=== PATIENT | male | born 1975 | race Caucasian/White ===

== ENCOUNTER → 2018-12-10 16:48 | Outpatient (CLI) | payer OTHER, SELFPAY ==
[2018-12-10 17:23] LABS: Add Manual Diff / Slide Review NO; Basophils Absolute Auto 100 /uL (0-100); Basophils Percent Auto 0.9 % (0-2); Eosinophils Absolute Auto 100 /uL (0-450); Eosinophils Percent Auto 1.8 % (2-4); Hematocrit 45.1 % (41-53); Hemoglobin 15.4 g/dL (13.5-17.5); Lymphocytes Absolute Auto 2400 /uL (1100-4500); Lymphocytes Percent Auto 33.1 % (25-40); Mean Corpuscular HGB Conc 34.2 % (30-36); Mean Corpuscular Hemoglobin 31.8 PG (26-34); Monocytes Absolute Auto 700 /uL (0-900); Monocytes Percent Auto 9.6 % (3-14); Neutrophils Absolute Auto 3900 /uL (1500-7000); Neutrophils Percent Auto 54.6 % (50-75); Platelet Count 240 X10^3/uL (150-400); Red Blood Cell Count 4.85 X10^6/uL (4.5-5.9); White Blood Cell Count 7.2 X10^3/uL (4.5-11.0)
[2018-12-10 17:34] LABS: Hemoglobin A1C% w Est Avg Glu 5.2 % (4.0-6.0)
[2018-12-10 17:54] LABS: Alanine Aminotransferase 49 IU/L (21-72); Albumin 4.5 g/dL (3.5-5.0); Albumin Globulin Ratio 1.6 (1.0-2.8); Alkaline Phosphatase 72 U/L (38-126); Aspartate Aminotransferase 65 IU/L (17-59); Blood Urea Nitrogen 13 mg/dL (9-20); Calcium 9.5 mg/dL (8.4-10.2); Carbon Dioxide 28 mmol/L (22-32); Chloride 103 mmol/L (98-107); Estimated Glomerular Filt Rate > 60.0 mL/min (>60); Globulin 2.9 g/dL (1.7-4.1); Glucose 96 mg/dL (70-100); HEMOLYSIS < 15 (0-50); Potassium 4.2 mmol/L (3.4-5.1); Sodium 140 mmol/L (137-145); Total Protein 7.4 g/dL (6.3-8.2)
[2018-12-10 18:24] LABS: Thyroid Stimulating Hormone 1.67 uIU/mL (0.47-4.68)
== END ==
PROVIDERS: PCP Family Medicine; Visit Provider Family Medicine
DX: R35.0 Frequency of micturition (principal)
CPT/HCPCS: 36415; 80053; 83036; 84443; 85025; G0103

== ENCOUNTER 2021-08-02 17:09 | Emergency (ER) | payer OTHER, SELFPAY ==
--- NOTE | 2021-08-02 17:11 | DI.RAD.S_ITS ---
PROCEDURE: XR CHEST 1V INDICATIONS: chest pain TECHNIQUE: One view of the chest was acquired. COMPARISON: [facility], , CHEST 2 VIEW, 05/04/2016, 14:21. FINDINGS: Surgical changes and devices: None. Lungs and pleura: Lungs are clear. No pleural effusions or pneumothorax. Mediastinum: Mediastinal contours appear normal. Heart size is normal. Bones and chest wall: No suspicious bony lesions. Overlying soft tissues appear unremarkable. IMPRESSION: 1. No acute cardiopulmonary disease. Dictated by: Harman Pereyra M.D. on 08/02/2021 at 18:32 Approved by: Harman Pereyra M.D. on 08/02/2021 at 18:33
[2021-08-02 17:19] VITALS: BP 107/57; PULSE 76; RESP 18; TEMP 36.6; O2SAT 97; BMI 31.7
[2021-08-02 17:39] LABS: Add Manual Diff / Slide Review NO; Basophils Absolute Auto 100 /uL (0-100); Eosinophils Absolute Auto 100 /uL (0-450); Eosinophils Percent Auto 1.7 % (2-4); Hematocrit 44.8 % (41-53); Hemoglobin 15.3 g/dL (13.5-17.5); Lymphocytes Absolute Auto 2400 /uL (1100-4500); Mean Corpuscular HGB Conc 34.2 % (30-36); Mean Corpuscular Hemoglobin 31.5 PG (26-34); Mean Corpuscular Volume 92.3 fL (80-100); Monocytes Absolute Auto 1000 /uL (0-900); Monocytes Percent Auto 13.2 % (3-14); Neutrophils Absolute Auto 3700 /uL (1500-7000); Neutrophils Percent Auto 51.1 % (50-75); Platelet Count 228 X10^3/uL (150-400); Red Blood Cell Count 4.86 X10^6/uL (4.5-5.9); Red Cell Distribution Width 12.6 % (11.6-14.8); White Blood Cell Count 7.2 X10^3/uL (4.5-11.0)
[2021-08-02 17:54] LABS: Alanine Aminotransferase 32 IU/L (<50); Albumin 4.7 g/dL (3.5-5.0); Albumin Globulin Ratio 1.5 (1.0-2.8); Alkaline Phosphatase 73 U/L (38-126); Aspartate Aminotransferase 59 IU/L (17-59); BUN Creatinine Ratio 11.8 (6-22); Bilirubin Total 1.1 mg/dL (0.2-1.3); Blood Urea Nitrogen 11 mg/dL (9-20); Calcium 9.5 mg/dL (8.4-10.2); Carbon Dioxide 33 mmol/L (22-32); Chloride 103 mmol/L (98-107); Creatine Kinase 156 U/L (55-170); Estimated Glomerular Filt Rate > 60.0 mL/min (>60); Globulin 3.2 g/dL (1.7-4.1); Glucose 87 mg/dL (70-100); HEMOLYSIS < 15 (0-50); Lipase 269 U/L (23-300); Potassium 3.6 mmol/L (3.4-5.1); Sodium 143 mmol/L (137-145); Total Protein 7.9 g/dL (6.3-8.2)
[2021-08-02 17:58] VITALS: BP 107/52; PULSE 74; RESP 17; O2SAT 99
[2021-08-02 18:06] LABS: Troponin I < 0.012 ng/mL (0.01-0.034)
[2021-08-02 18:09] LABS: CKMB % Relative Index 0.5 % (1.5-5.0); Creatine Kinase MB 0.84 ng/mL (<2.37)
--- NOTE | 2021-08-02 18:36 | ED_ITS ---
HPI - Chest Pain <Jay Hewitt PA-C - Last Filed: 08/02/21 19:20> General Chief Complaint: Chest Pain Stated Complaint: CHEST PAIN SINCE MON Time Seen by Provider: 08/02/21 17:34 Source: patient Mode of arrival: Family Vehicle Limitations: no limitations History of Present Illness HPI narrative: Harman presents today with chief complaint of right-sided chest wall pain that started yesterday. He does not know of any injury that could have contributed to his symptoms. His pain is described as sharp and is reproduced with movement or direct palpation of his right lower ribs. His pain completely goes away if he lays still. He denies any significant difficulty breathing, nausea, diaphoresis, shortness of breath, fever, cough or any other acute concerns or complaints at this time. He is otherwise healthy and has no known significant past medical problems. He denies any history of DVT, recent surgeries, prolonged immobilization. Review of Systems <Jay Hewitt PA-C - Last Filed: 08/02/21 19:20> Review of Systems Narrative: As per HPI Patient History <Jay Hewitt PA-C - Last Filed: 08/02/21 19:20> Social History Smoking Status: Never smoker Smoking Status: Never smoker alcohol intake frequency: holidays/special occasions only Substance Use Type: does not use Exam <EUGENIO [employer] Last Filed: 08/02/21 19:20> Narrative Exam Narrative: Exam Narrative: Const General: cooperative, healthy appearing, comfortable, no acute distress, well developed and well groomed Nutritional Appearance: average body habitus Orientation: alert and oriented x3 HENMT Head: normal to inspection and atraumatic Ears: hearing grossly normal bilaterally Nose: external nose normal and nares normal Face and sinus: normal facial exam Neck Neck: normal visual inspection and supple Resp Effort & Inspection: normal respiratory effort, able to speak in complete sentences, no audible wheezes, not labored, no nasal flaring and no respiratory distress, clear to auscultation bilaterally Cardiac Regular rate and rhythm, no discernible murmurs, rubs or gallops Chest Right-sided lower anterior chest wall tenderness with palpation. No tenderness with anterior posterior compression or lateral compression. No overlying skin abnormalities. GI Nondistended, nontender, normal bowel sounds. Neuro General: alert, oriented x3, gait normal, tone normal and moves all extremities Cognition: normal cognition Speech: speech normal Gait: normal gait Psych Appearance: grossly normal and well kempt Mental Status: mental status grossly normal Speech and Movement: speech and movement normal Mood: congruent mood Affect: normal affect Initial Vital Signs Initial Vital Signs: Vital Signs Temperature 97.9 F 08/02/21 17:19 Pulse Rate 76 08/02/21 17:19 Respiratory Rate 18 08/02/21 17:19 Blood Pressure 107/57 L 08/02/21 17:19 Pulse Oximetry 97 08/02/21 17:19 <Angy Aburto MD - Last Filed: 08/03/21 02:44> Initial Vital Signs Initial Vital Signs: Vital Signs Temperature 97.9 F 08/02/21 17:19 Pulse Rate 76 08/02/21 17:19 Respiratory Rate 18 08/02/21 17:19 Blood Pressure 107/57 L 08/02/21 17:19 Pulse Oximetry 97 08/02/21 17:19 Scores <Jay Hewitt PA-C - Last Filed: 08/02/21 19:20> HEART Score Heart Score history: Slightly Suspicious Heart Score EKG: Normal Heart Score Age: 45-64 years old Heart Score risk factors: 1-2 risk factors Heart Score troponin: < or = to normal limit Heart Score Total: 2 PERC Score Age greater than or equal to 50 years: No Heart rate greater than or equal to 100 bpm: No Room Air O2 Sat less than 95%: No Unilateral leg swelling: No Recent trauma or surgery: No Hemoptysis: No Prior PE or DVT: No Hormone Use: No Total PERC Score: 0 <Angy Aburto MD - Last Filed: 08/03/21 02:44> HEART Score Heart Score Total: 2 PERC Score Total PERC Score: 0 Course <Jay Hewitt PA-C - Last Filed: 08/02/21 19:20> Orders Ordered: Discontinued Medications Ketorolac Tromethamine (Ketorolac 30 Mg/Ml Vial) 15 mg IV NOW ONE Stop: 08/02/21 19:09 Last Admin: 08/02/21 19:08 Dose: 15 mg Documented by: RACHEL Vital Signs Vital signs: Vital Signs - 8 hr 08/02/21 18:51 08/02/21 19:13 Temperature 98.2 F Pulse Rate 67 70 Respiratory Rate 18 18 Blood Pressure 161/90 H 156/83 H Pulse Oximetry 98 98 <Angy Aburto MD - Last Filed: 08/03/21 02:44> Orders Ordered: Discontinued Medications Ketorolac Tromethamine (Ketorolac 30 Mg/Ml Vial) 15 mg IV NOW ONE Stop: 08/02/21 19:09 Last Admin: 08/02/21 19:08 Dose: 15 mg Documented by: NICOLASYERS Vital Signs Vital signs: Vital Signs - 8 hr 08/02/21 18:51 08/02/21 19:13 Temperature 98.2 F Pulse Rate 67 70 Respiratory Rate 18 18 Blood Pressure 161/90 H 156/83 H Pulse Oximetry 98 98 MDM - Chest Pain <Jay Hewitt PA-C - Last Filed: 08/02/21 19:20> Lab Data Result diagrams: 08/02/21 17:29 08/02/21 17:29 Labs: Lab Results 08/02/21 08/02/21 Range/Units 17:29 17:29 WBC 7.2 (4.5-11.0) X10^3/uL RBC 4.86 (4.5-5.9) X10^6/uL Hgb 15.3 (13.5-17.5) g/dL Hct 44.8 (41-53) % MCV 92.3 (80-100) fL MCH 31.5 (26-34) PG MCHC 34.2 (30-36) % RDW 12.6 (11.6-14.8) % Plt Count 228 (150-400) X10^3/uL Neut % (Auto) 51.1 (50-75) % Lymph % (Auto) 33.0 (25-40) % [place] % (Auto) 13.2 (3-14) % Eos % (Auto) 1.7 L (2-4) % Baso % (Auto) 1.0 (0-2) % Neut # (Auto) 3700 (5074-8109) /uL Lymph # (Auto) 2400 (6632-0004) /uL [place] # (Auto) 1000 H (0-900) /uL Eos # (Auto) 100 (0-450) /uL Baso # (Auto) 100 (0-100) /uL Sodium 143 (137-145) mmol/L Potassium 3.6 (3.4-5.1) mmol/L Chloride 103 (98-107) mmol/L Carbon Dioxide 33 H (22-32) mmol/L BUN 11 (9-20) mg/dL Creatinine 0.93 (0.66-1.25) mg/dL Estimated GFR > 60.0 (>60) mL/min BUN/Creatinine Ratio 11.8 (6-22) Glucose 87 (70-100) mg/dL Calcium 9.5 (8.4-10.2) mg/dL Total Bilirubin 1.1 (0.2-1.3) mg/dL AST 59 (17-59) IU/L ALT 32 (<50) IU/L Alkaline Phosphatase 73 (38-126) U/L Total Creatine Kinase 156 (55-170) U/L CK-MB (CK-2) 0.84 (<2.37) ng/mL CK-MB (CK-2) Rel Index 0.5 L (1.5-5.0) % Troponin I < 0.012 (0.01-0.034) ng/mL Total Protein 7.9 (6.3-8.2) g/dL Albumin 4.7 (3.5-5.0) g/dL Globulin 3.2 (1.7-4.1) g/dL Albumin/Globulin Ratio 1.5 (1.0-2.8) Lipase 269 (23-300) U/L MDM Narrative Medical decision making narrative: Differential diagnosis includes pulmonary embolism, acute coronary syndrome, pneumonia, pneumothorax. Patient is well-appearing at this time, has reassuring chest x-ray, EKG and blood work. Perc criteria applied to the patient and he scored 0. This suggests very low likelihood of PE. He has chest wall tenderness that is reproducible with position changes well as direct palpation. I suspect that this is costochondritis. Recommend anti-inflammatory therapy to help with symptoms. Strict ER return precautions were discussed with the patient. He was recommended to follow up with his PCP as soon as possible. Patient verbalizes understanding and agrees to plan and has no further concerns at this time. Thank you A [id number] system was used with the dictation of this note. Please disregard any spelling or grammatical errors. <Angy Aburto MD - Last Filed: 08/03/21 02:44> Lab Data Labs: Lab Results 08/02/21 08/02/21 Range/Units 17:29 17:29 WBC 7.2 (4.5-11.0) X10^3/uL RBC 4.86 (4.5-5.9) X10^6/uL Hgb 15.3 (13.5-17.5) g/dL Hct 44.8 (41-53) % MCV 92.3 (80-100) fL MCH 31.5 (26-34) PG MCHC 34.2 (30-36) % RDW 12.6 (11.6-14.8) % Plt Count 228 (150-400) X10^3/uL Neut % (Auto) 51.1 (50-75) % Lymph % (Auto) 33.0 (25-40) % [place] % (Auto) 13.2 (3-14) % Eos % (Auto) 1.7 L (2-4) % Baso % (Auto) 1.0 (0-2) % Neut # (Auto) 3700 (5206-5087) /uL Lymph # (Auto) 2400 (9766-1052) /uL [place] # (Auto) 1000 H (0-900) /uL Eos # (Auto) 100 (0-450) /uL Baso # (Auto) 100 (0-100) /uL Sodium 143 (137-145) mmol/L Potassium 3.6 (3.4-5.1) mmol/L Chloride 103 (98-107) mmol/L Carbon Dioxide 33 H (22-32) mmol/L BUN 11 (9-20) mg/dL Creatinine 0.93 (0.66-1.25) mg/dL Estimated GFR > 60.0 (>60) mL/min BUN/Creatinine Ratio 11.8 (6-22) Glucose 87 (70-100) mg/dL Calcium 9.5 (8.4-10.2) mg/dL Total Bilirubin 1.1 (0.2-1.3) mg/dL AST 59 (17-59) IU/L ALT 32 (<50) IU/L Alkaline Phosphatase 73 (38-126) U/L Total Creatine Kinase 156 (55-170) U/L CK-MB (CK-2) 0.84 (<2.37) ng/mL CK-MB (CK-2) Rel Index 0.5 L (1.5-5.0) % Troponin I < 0.012 (0.01-0.034) ng/mL Total Protein 7.9 (6.3-8.2) g/dL Albumin 4.7 (3.5-5.0) g/dL Globulin 3.2 (1.7-4.1) g/dL Albumin/Globulin Ratio 1.5 (1.0-2.8) Lipase 269 (23-300) U/L Discharge Plan Departure Patient Disposition: Home Clinical Impression: Costalchondritis Chest pain Qualifiers: Chest pain type: unspecified Qualified Code(s): R07.9 - Chest pain, unspecified Instructions: DI for Chest Pain Activity Restrictions/Additional Instructions: It was very nice to meet you this evening. Please use anti-inflammatories, light stretching and light activity as your primary therapy. If you experience worsening pain, difficulty breathing, fever, nausea vomiting, or have any other concerns or complaints do not hesitate to return immediately for re-evaluation. Thank you Jay Hewitt PA-C Referrals: Reinier Woodward MD [Primary Care Provider] - <Angy Aburto MD - Last Filed: 08/03/21 02:44> Cosign ED Attending Cosignature Attestation: I was immediately available in the department for consultation throughout this patient's visit. I agree with doc umentation as above. Angy Aburto MD
[2021-08-02 18:51] VITALS: BP 161/90; PULSE 67; RESP 18; TEMP 36.8; O2SAT 98
[2021-08-02] MEDS: KETOROLAC 30 MG/ML VIAL 15 MG IV (19:08)
[2021-08-02 19:13] VITALS: BP 156/83; PULSE 70; RESP 18; O2SAT 98
== END 2021-08-02 19:19 | disposition home or self-care (01) ==
PROVIDERS: Emergency Medicine; Emergency Provider Physician Assistant; Family Provider Family Medicine; PCP Family Medicine
DX: R07.9 Chest pain, unspecified (principal); M94.0 Chondrocostal junction syndrome [Tietze]
CPT/HCPCS: 36415; 71045; 80053; 82550; 82553; 83690; 84484; 85025; 93005; 96374; 99284; J1885

== ENCOUNTER → 2022-10-10 19:46 | Outpatient (ROUT) | payer BC, SELFPAY ==
[2022-10-10 20:31] LABS: Influenza A - CEPHEID Flu A POSITIVE (NEGATIVE); Influenza B - CEPHEID Flu B NEGATIVE (NEGATIVE); Respiratory Syncytial Virus Negative (Negative)
[2022-10-10 20:39] LABS: COVID-19 CEPHEID 4-PLEX PCR Negative (Negative)
== END ==
PROVIDERS: Family Provider Family Medicine; PCP Family Medicine; Visit Provider Registered Nurse
DX: R05.9 Cough, unspecified (principal)
CPT/HCPCS: 0241U

== ENCOUNTER → 2024-04-15 12:05 | Outpatient (CLI) | payer BC, SELFPAY ==
--- NOTE | 2024-04-15 12:07 | DI.RAD.S_ITS ---
PROCEDURE: XR HIP W PEL IF DONE RT 2V INDICATIONS: GROIN RT PAIN TECHNIQUE: AP pelvis with lateral view(s) of the right hip(s). COMPARISON: None. FINDINGS: Bones: No fractures or dislocations. Pelvic ring appears intact. No suspicious bony lesions. Soft tissues: The visualized bowel gas pattern is normal. No suspicious soft tissue calcifications. IMPRESSION: No acute bony abnormality. No significant degenerative change. Dictated by: Dominic Ware M.D. on 04/15/2024 at 13:01 Approved by: Dominic Ware M.D. on 04/15/2024 at 13:01
== END ==
PROVIDERS: Family Provider Family Medicine; PCP Family Medicine; Referring Provider Family Medicine; Visit Provider Family Medicine
DX: R10.31 Right lower quadrant pain (principal); Z87.19 Personal history of other diseases of the digestive system
CPT/HCPCS: 73502

== ENCOUNTER → 2024-06-17 07:22 | Outpatient (CLI) | payer BC, SELFPAY ==
--- NOTE | 2024-06-17 | DI.CT.S_ITS ---
PROCEDURE: CT ABDOMEN PELVIS W CON INDICATIONS: Left lower quadrant pain TECHNIQUE: After the administration of intravenous contrast, axial sections acquired from the lung bases to the pubic symphysis. Coronal and sagittal reformats were performed. For radiation dose reduction, the following was used: automated exposure control, adjustment of mA and/or kV according to patient size. COMPARISON: None. FINDINGS: Image quality: Diagnostic. Lower Chest: No significant findings. ABDOMEN: Liver: No solid mass. Gallbladder: No definite radiopaque gallstones or wall thickening. Subtle heterogeneity is present within the gallbladder lumen possibly representing an noncalcified gallstone. Biliary ducts: No biliary dilation. Pancreas: No ductal dilation. Spleen: Size is within normal limits. Adrenal Glands: No adrenal nodules. Kidneys and Ureters: No hydronephrosis. No solid mass. No complex renal cystic lesion which requires follow up. Stomach and Bowel: Normal colonic caliber, without significant wall thickening. Peritoneum: No abnormal intraperitoneal fluid. No free air. Ventral Wall: No significant ventral hernia. Abdominal Nodes: No retroperitoneal or mesenteric adenopathy by size criteria. Vessels: Aorta and inferior vena cava are normal in size. PELVIS: Pelvic Organs: Unremarkable. Bladder: No bladder wall thickening, accounting for underdistention. Pelvic Nodes: No enlarged lymph nodes. Miscellaneous: No inguinal hernias are seen. Normal appendix found right lower quadrant. At the left lower quadrant sigmoid diverticulosis is present but no definite acute diverticulitis is seen. Bones: No aggressive osseous abnormality. IMPRESSION: 1. There is a subtle degree of heterogeneity within the gallbladder lumen conceivably a manifestation of noncalcified gallstone. No suspicion for biliary obstruction or acute cholecystitis. 2. Sigmoid diverticulosis without acute diverticulitis. No colonic mass lesion seen. 3. Normal appendix found right lower quadrant. Dictated by: Doyle Irizarry M.D. on 06/17/2024 at 11:44 Approved by: Doyle Irizarry M.D. on 06/17/2024 at 12:26
== END ==
PROVIDERS: PCP Family Medicine; Referring Provider Family Medicine; Visit Provider Family Medicine
DX: K57.30 Diverticulosis of large intestine without perforation or abscess without bleeding (principal); R10.32 Left lower quadrant pain
CPT/HCPCS: 74177; Q9967

== ENCOUNTER 2024-09-11 07:16 | Emergency (ER) | payer BC, SELFPAY ==
[2024-09-11] VITALS (10 sets, daily range): BP systolic 125–148; BP diastolic 79–96; PULSE 59–75; RESP 17–18; TEMP 37.1; O2SAT 94–100
[2024-09-11 07:35] LABS: Add Manual Diff / Slide Review NO; Basophils Absolute Auto 100 /uL (0-100); Basophils Percent Auto 0.9 % (0-2); Eosinophils Absolute Auto 200 /uL (0-450); Eosinophils Percent Auto 2.7 % (2-4); Hematocrit 47.3 % (41-53); Hemoglobin 16.5 g/dL (13.5-17.5); Lymphocytes Absolute Auto 3100 /uL (1100-4500); Lymphocytes Percent Auto 45.7 % (25-40); Mean Corpuscular HGB Conc 34.7 % (30-36); Mean Corpuscular Hemoglobin 32.2 PG (26-34); Mean Corpuscular Volume 92.6 fL (80-100); Monocytes Absolute Auto 800 /uL (0-900); Monocytes Percent Auto 11.2 % (3-14); Neutrophils Absolute Auto 2700 /uL (1500-7000); Neutrophils Percent Auto 39.5 % (50-75); Platelet Count 248 X10^3/uL (150-400); Red Blood Cell Count 5.11 X10^6/uL (4.5-5.9); Red Cell Distribution Width 12.9 % (11.6-14.8); White Blood Cell Count 6.8 X10^3/uL (4.5-11.0)
[2024-09-11 07:45] LABS: Alanine Aminotransferase 35 IU/L (<50); Albumin 4.6 g/dL (3.5-5.0); Albumin Globulin Ratio 1.4 (1.0-2.8); Alkaline Phosphatase 78 U/L (38-126); Aspartate Aminotransferase 61 IU/L (17-59); BUN Creatinine Ratio 8.4 (6-22); Bilirubin Total 1.1 mg/dL (0.2-1.3); Blood Urea Nitrogen 10 mg/dL (9-20); Calcium 9.3 mg/dL (8.4-10.2); Carbon Dioxide 30 mmol/L (22-32); Chloride 105 mmol/L (98-107); Estimated Glomerular Filt Rate > 60 mL/min (>60); Globulin 3.2 g/dL (1.7-4.1); Glucose 102 mg/dL (70-100); HEMOLYSIS 18 (0-50); Lipase 260 U/L (23-300); Potassium 3.8 mmol/L (3.4-5.1); Sodium 142 mmol/L (137-145); Total Protein 7.8 g/dL (6.3-8.2)
--- NOTE | 2024-09-11 07:49 | ED_ITS ---
HPI - Abdominal Pain General Chief Complaint: Abdominal Pain Stated Complaint: RIGHT SIDE ABD PAIN Time Seen by Provider: 09/11/24 07:23 Source: patient Mode of arrival: Family Vehicle History of Present Illness HPI narrative: Patient is a 48-year-old male history of hypertension presenting today with sudden onset of right lower quadrant pain. He said he was doing well yesterday no problems however this morning pain will confirm asleep. It is radiating around his back. It does come and go in waves no nausea vomiting or fever. No prior history of kidney stones. Reports he has had some chronic ongoing lower abdominal pain had a CT 06/17/2024 which did not show any evidence of nephrolithiasis. Related Data Previous Rx's Medication Instructions Recorded hydrocodone 5 mg-acetaminophen 325 1 tab PO Q6H PRN pain #10 tabs 09/11/24 mg tablet ondansetron 4 mg disintegrating 4 mg PO Q6-8H PRN nausea and 09/11/24 tablet vomiting #10 tabs Patient History Social History Smoking Status: Never smoker Smoking Status: Never smoker alcohol intake frequency: holidays/special occasions only Substance Use Type: does not use Exam Initial Vital Signs Initial Vital Signs: Vital Signs Pulse Rate 67 09/11/24 07:24 Pulse Oximetry 100 09/11/24 07:24 GENERAL: Alert 48-year-old male and in no acute distress. HEENT: Head atraumatic,EOMI, pupils reactive, face symmetric, moist mucous membranes CARDIOVASCULAR: Regular rate and rhythm without murmurs, rubs or gallops. RESPIRATORY: Breath sounds equal bilaterally, no wheezes rales or rhonchi. ABDOMEN: Soft, tender right lower quadrant Normoactive bowel sounds all 4 quadrants. No guarding or rebound. Negative Hoang's sign epigastric pain : Minimal right CVA tenderness EXTREMITIES: Normal range of motion, no clubbing or edema. Neurovascularly intact NEUROLOGICAL: Alert and oriented x4.Normal gait and speech. SKIN: Warm, dry, no laceration, no petechiae, no rashes or lesions. Course Orders Ordered: Discontinued Medications Ketorolac Tromethamine (Ketorolac 30 Mg/Ml Vial) 15 mg IV NOW ONE Stop: 09/11/24 07:51 Last Admin: 09/11/24 08:09 Dose: 15 mg Documented By: BETSY Ondansetron HCl (Ondansetron 4 Mg/2 Ml Inj) 4 mg IV NOW PRN PRN Reason: Nausea And Vomiting Ondansetron HCl (Ondansetron 4 Mg Odt) 4 mg PO NOW PRN PRN Reason: Nausea And Vomiting Vital Signs Vital signs: Vital Signs - 8 hr 09/11/24 07:24 09/11/24 07:27 09/11/24 07:30 Temperature 98.7 F Pulse Rate 67 63 Respiratory Rate 17 Blood Pressure 138/94 H 148/96 H Pulse Oximetry 100 99 Oxygen Delivery Method Room Air 09/11/24 07:30 09/11/24 08:05 09/11/24 08:06 Temperature Pulse Rate 68 75 Respiratory Rate Blood Pressure Pulse Oximetry 98 96 99 Oxygen Delivery Method Room Air 09/11/24 08:06 Temperature Pulse Rate Respiratory Rate Blood Pressure 140/81 Pulse Oximetry Oxygen Delivery Method MDM - Abdominal Pain Lab Data 09/11/24 07:20 09/11/24 07:20 Labs: Lab Results 09/11/24 09/11/24 Range/Units 07:20 07:40 WBC 6.8 (4.5-11.0) X10^3/uL RBC 5.11 (4.5-5.9) X10^6/uL Hgb 16.5 (13.5-17.5) g/dL Hct 47.3 (41-53) % MCV 92.6 (80-100) fL MCH 32.2 (26-34) PG MCHC 34.7 (30-36) % RDW 12.9 (11.6-14.8) % Plt Count 248 (150-400) X10^3/uL Neut % (Auto) 39.5 L (50-75) % Lymph % (Auto) 45.7 H (25-40) % [place] % (Auto) 11.2 (3-14) % Eos % (Auto) 2.7 (2-4) % Baso % (Auto) 0.9 (0-2) % Neut # (Auto) 2700 (7389-3454) /uL Lymph # (Auto) 3100 (0120-6303) /uL [place] # (Auto) 800 (0-900) /uL Eos # (Auto) 200 (0-450) /uL Baso # (Auto) 100 (0-100) /uL Sodium 142 (137-145) mmol/L Potassium 3.8 (3.4-5.1) mmol/L Chloride 105 (98-107) mmol/L Carbon Dioxide 30 (22-32) mmol/L BUN 10 (9-20) mg/dL Creatinine 1.19 (0.66-1.25) mg/dL Estimated GFR > 60 (>60) mL/min BUN/Creatinine Ratio 8.4 (6-22) Glucose 102 H (70-100) mg/dL Calcium 9.3 (8.4-10.2) mg/dL Total Bilirubin 1.1 (0.2-1.3) mg/dL AST 61 H (17-59) IU/L ALT 35 (<50) IU/L Alkaline Phosphatase 78 (38-126) U/L Total Protein 7.8 (6.3-8.2) g/dL Albumin 4.6 (3.5-5.0) g/dL Globulin 3.2 (1.7-4.1) g/dL Albumin/Globulin Ratio 1.4 (1.0-2.8) Lipase 260 (23-300) U/L Urine RBC 30-100/hpf H (0-5/HPF) Urine WBC 1-5/hpf (0-5/HPF) Ur Squamous Epith Cells 1-5 /hpf (0-5/HPF) Amorphous Sediment 2+ Urine Bacteria None seen (None) Ur Culture Indicated? Specimen cultured Vol Urine Centrifuged 10ml (spun) Point of care testing: Urine Dip Bedside Urine Glucose Negative Bedside Urine Bilirubin + 1 Bedside Urine Ketone - Negative Urine Specific [place] 1.025 Bedside Urine Occult Blood +++ Bedside Urine pH 6.0 Bedside Urine Protein - Negative Bedside Urine Urobilinogen - Negative Bedside Urine Nitrite - Negative Bedside Urine Leukocytes +/- 15 Esterase MDM Narrative Medical decision making narrative: Patient 48-year-old male without significant past medical history presenting today with sudden onset right lower quadrant pain. Coming and going in waves no nausea or vomiting or fevers. Differential diagnosis nephrolithiasis appendicitis cholelithiasis Blood work has been reviewed no leukocytosis WBC is 6.8, electrolytes are within normal limits creatinine 1.19 previously 0.93 liver enzymes bilirubin within normal limits Urinalysis positive for blood but no sign of infection CT shows a 3 mm proximal ureteral stone. Significant hydro nephrosis At this time no antibiotics are indicated pain is well-controlled with Toradol. Discussion of pain control at home and strict return precautions. Discharge Plan Departure Patient Disposition: Home Clinical Impression: Kidney stones Instructions: DI for Kidney Stones Activity Restrictions/Additional Instructions: * You've been diagnosed with kidney stone * What to do: Increase fluid intake, Strain urine, try to catch stone * Please follow-up with your primary care provider in the next 2-3 days, you may require urology consultation please discuss this with -If you should have fever, or pain is uncontrolled with medication at home or any other concerning symptoms return to ER for further evaluation MEDICATIONS -- sent to [facility] Take Motrin 600 mg every 8 hours as needed for pain Take Leonard every 6 hours if needed for severe pain Take Zofran every 4-6 hours if needed for nausea CONTROLLED SUBSTANCE DISCHARGE (Narcotoic/benzodiazepine) 1. You have been prescribed narcotic medications, it does have acetaminophen/Tylenol/paracetamol in it so do not take extra Tylenol or Tylenol containing products 2. Please understand that we cannot provide further refills of narcotics, benzodiazepines or controlled substances through the ED and her pain management will need to be through your provider. 3. While on these medications you cannot drive or operate heavy machinery. 4. You cannot sign legal documents or perform any duties such as this. 5. As long as you're taking opiate pain medications he should also be taking a stool softener such as Colace, Dulcolax, MiraLAX or prune juice, to help avoid constipation. Prescriptions: New hydrocodone-acetaminophen 5-325 mg tablet 1 tab PO Q6H PRN (Reason: pain) Qty: 10 0RF ondansetron 4 mg tablet,disintegrating 4 mg PO Q6-8H PRN (Reason: nausea and vomiting) Qty: 10 0RF Referrals: Reinier Woodward MD [Primary Care Provider] - Stand Alone Forms: Patient Portal/API/Survey
--- NOTE | 2024-09-11 07:50 | DI.CT.S_ITS ---
PROCEDURE: CT ABDOMEN PELVIS W CON INDICATIONS: right lower quad pain TECHNIQUE: After the administration of intravenous contrast, axial sections acquired from the lung bases to the pubic symphysis. Coronal and sagittal reformats were performed. For radiation dose reduction, the following was used: automated exposure control, adjustment of mA and/or kV according to patient size. COMPARISON: [facility], CT, CT ABDOMEN PELVIS W CON, 06/17/2024, 8:50. FINDINGS: Image quality: Diagnostic. Lower Chest: No significant findings. ABDOMEN: Liver: No solid mass. Gallbladder: A potential gallstone is again seen. No additional CT findings of cholecystitis can be seen. Biliary ducts: No biliary dilation. Pancreas: No ductal dilation. Spleen: Size is within normal limits. Adrenal Glands: No adrenal nodules. Kidneys and Ureters: There is a 3 mm obstructing stone within the right proximal ureter, as on series 4, image 54 and on series 2 image 69. There is associated moderate right-sided hydronephrosis and mild right-sided hydroureter. There is a right-sided delayed nephrogram. No left-sided hydronephrosis is seen. The no definite nonobstructing kidney stones can be seen on either side. Stomach and Bowel: The normal appendix is seen, as on series 2 images 91-98. No focal right lower quadrant inflammatory change can be seen. Normal colonic caliber, without significant wall thickening. No dilated loops of small bowel are seen. Peritoneum: No abnormal intraperitoneal fluid. No free air. Ventral Wall: No significant ventral hernia. Abdominal Nodes: No retroperitoneal or mesenteric adenopathy by size criteria. Vessels: Aorta and inferior vena cava are normal in size. PELVIS: Pelvic Organs: Unremarkable. Bladder: No bladder wall thickening, accounting for underdistention. Pelvic Nodes: No enlarged lymph nodes. Miscellaneous: No inguinal hernias are seen. Bones: No aggressive osseous abnormality. Focal L4-L5 and L5-S1 degenerative change can be seen. Milder degenerative changes are seen elsewhere. IMPRESSION: There is a 3 mm obstructing stone within the right proximal ureter. Normal appendix. Additional findings: Potential gallstone Focal lower lumbar spine degenerative change Dictated by: Tate Kinsey M.D. on 09/11/2024 at 7:50 Approved by: Tate Kinsey M.D. on 09/11/2024 at 7:53
[2024-09-11] MEDS: KETOROLAC 30 MG/ML VIAL 15 MG IV (08:09)
[2024-09-11 08:24] LABS: Amorphous Sediment Urine 2+; Bacteria Urine None Seen; Culture Indicated Urine Specimen Cultured; RBC Urine 30-100/HPF (0-5/HPF); Squamous Epithelial Cell Urine 1-5 /HPF (0-5/HPF); Urine Volume 10mL (spun); WBC Urine 1-5/HPF (0-5/HPF)
== END 2024-09-11 09:46 | disposition home or self-care (01) ==
PROVIDERS: Emergency Provider Emergency Medicine; PCP Family Medicine
DX: N20.0 Calculus of kidney (principal)
CPT/HCPCS: 36415; 74177; 80053; 81003; 81015; 83690; 85025; 87086; 96374; 99284; J1885; Q9967